=== PATIENT | female | born 1995 | race American Indian/Alaskan Native ===

== ENCOUNTER 2021-08-15 13:25 | Emergency (ER) | payer SELFPAY ==
--- NOTE | 2021-08-15 14:22 | Emergency Department Report ---
ED General Adult HPI - General Chief complaint: Syncope Stated complaint: SYNCOPE PUI?: No Time Seen by Provider: 08/15/21 13:45 Source: patient, EMS ( EMS documentation not available at time of chart dictation ), RN notes reviewed Mode of arrival: Stretcher Limitations: No Limitations - History of Present Illness Initial comments: The patient was evaluated in the emergency department for symptoms described in the history of present illness. He/she was evaluated in the context of the global COVID-19 pandemic, which necessitated consideration that the patient might be at risk for infection with the virus that causes COVID-19. Institutional protocols and algorithms that pertain to the evaluation of patients at risk for COVID-19 are in a state of rapid change based on information released by regulatory bodies including the CDC and federal and state organizations. These policies and algorithms were followed during the patient's care in the emergency department. Please note that these policies, procedures and recommendations changed on a rapid basis. The patient is a 26-year-old female. She is not known to myself previously. She states that she is not . She is brought to the hospital by emergency medical services with a chief complaint of syncope. The patient denies travel, surgery, , im mobilization, DVT and pulmonary embolism risk factors. She also denies Covid symptomatology. Patient reports that she was in her usual state of health this morning and this afternoon, and she was donating plasma. She reports that while donating plasma, she began to feel lightheaded, and lost consciousness. Prior to this event, she denies headache, neck pain, chest pain and abdominal pain. She states that she feels like she is basically back to her baseline. This is not happened to her in the past. -: Sudden Consistency: now resolved Improves with: none Worsens with: none Associated Symptoms: denies other symptoms, syncope, other (Mild nausea, no vomiting) - Related Data Allergies Allergy/AdvReac Type Severity Reaction Status Date / Time No Known Allergies Allergy Verified 08/15/21 14:17 ED Review of Systems ROS: Stated complaint: SYNCOPE Other details as noted in HPI Constitutional: denies: fever Eyes: denies: eye discharge ENT: denies: epistaxis Respiratory: denies: cough Cardiovascular: syncope. denies: chest pain Gastrointestinal: nausea. denies: abdominal pain, vomiting, hematemesis, melena, hematochezia Genitourinary: denies: dysuria Neurological: denies: headache Psychiatric: anxiety Hematological/Lymphatic: denies: easy bleeding ED Physical Exam - General Limitations: No Limitations General appearance: alert, in no apparent distress - Head Head exam: Present: atraumatic, normocephalic - Eye Eye exam: Present: normal appearance, PERRL, EOMI. Absent: nystagmus Pupils: Present: other (Visual acuity intact to finger counting, color perception, reading at a close distance) - ENT ENT exam: Present: normal exam, normal orophraynx, mucous membranes moist, normal external ear exam - Neck Neck exam: Present: normal inspection, full ROM. Absent: tenderness, meningismus - Respiratory Respiratory exam: Present: normal lung sounds bilaterally. Absent: respiratory distress, wheezes, rales, rhonchi, stridor, decreased breath sounds - Cardiovascular Cardiovascular Exam: Present: regular rate, normal rhythm, normal heart sounds. Absent: bradycardia, tachycardia, irregular rhythm, systolic murmur, diastolic murmur, rubs, gallop - GI/Abdominal GI/Abdominal exam: Present: soft. Absent: distended, tenderness, guarding, rebound, rigid, pulsatile mass - Extremities Exam Extremities exam: Present: normal inspection, full ROM, other (2+ pulses noted in the bilateral upper and lower extremities. There is no palpable cord. negative Homans sign. Muscular compartments are soft. The pelvis is stable.). Absent: pedal edema, calf tenderness - Back Exam Back exam: Present: normal inspection, full ROM. Absent: tenderness, CVA tenderness (R), CVA tenderness (L), paraspinal tenderness, vertebral tenderness - Neurological Exam Neurological exam: Present: alert, oriented X3, normal gait, other (There is no facial droop. The tongue is midline. Extraocular movements are intact bilaterally. There is 5 out of 5 strength in bilateral upper and lower extremities. Sensation is intact to light touch bilateral upper and lower extremities. There is no past-pointing. There is no pronator drift.). Absent: motor sensory deficit - Psychiatric Psychiatric exam: Present: normal affect, normal mood - Skin Skin exam: Present: warm, dry, intact, normal color. Absent: rash ED Course Vital Signs 08/15/21 08/15/21 15:10 15:15 Pulse Rate 94 H Respiratory 21 Rate O2 Sat by Pulse 98 100 Oximetry - Reevaluation(s) Reevaluation #1: 08/15/21 14:21 Differential diagnosis, including but not limited to: Orthostasis, vagal event, dehydration, electrolyte derangement Assessment and plan: 26-year-old female, who is not currently tachycardic, tachypneic or hypoxic, who denies DVT and pulmonary embolism risk factors, who is low risk by Wells criteria for pulmonary embolism, PERC negative, GCS 15, NIH score of 0, walking with a steady gait, who presents with an episode of painless loss of consciousness in the context of donating blood/plasma, now resolved. On my initial evaluation, the patient is in no distress, on her cell phone, and has a nonfocal neurologic exam, walking with a steady gait with no cerebellar signs. EKG unremarkable. Place patient on engine monitor, administer IV fluids and antiemetics. Obtain appropriate laboratory studies, reassess. I discussed this plan of care with the patient. She articulated understanding. 08/15/21 15:43 laboratory studies are unremarkable. Blood pressure still hypotensive. Additional IV fluids ordered. Patient resting comfortably in stretcher, in no acute distress. He'll be transferred to the oncoming ER physician, to reassess after completion of IV fluid resuscitation. We anticipate discharge presuming normalization of vital signs. ED Medical Decision Making - Lab Data Result diagrams: 08/15/21 14:12 08/15/21 14:12 Vital Signs 08/15/21 08/15/21 15:10 15:15 Pulse Rate 94 H Respiratory 21 Rate O2 Sat by Pulse 98 100 Oximetry Lab Results 08/15/21 08/15/21 08/15/21 Range/Units 14:12 14:12 14:12 WBC 10.3 (4.5-11.0) K/mm3 RBC 4.06 (3.65-5.03) M/mm3 Hgb 12.5 (10.1-14.3) gm/dl Hct 36.8 (30.3-42.9) % MCV 91 (79-97) fl MCH 31 (28-32) pg MCHC 34 (30-34) % RDW 14.5 (13.2-15.2) % Plt Count 372 (140-440) K/mm3 PT 14.6 (12.2-14.9) Sec. INR 1.09 (0.87-1.13) Sodium 138 (137-145) mmol/L Potassium 3.5 L (3.6-5.0) mmol/L Chloride 102.9 (98-107) mmol/L Carbon Dioxide 19 L (22-30) mmol/L Anion Gap 20 mmol/L BUN 8 (7-17) mg/dL Creatinine 0.7 (0.6-1.2) mg/dL Estimated GFR > 60 ml/min BUN/Creatinine Ratio 11 % Glucose 137 H (65-100) mg/dL Calcium 9.0 (8.4-10.2) mg/dL Magnesium 1.60 L (1.7-2.3) mg/dL Total Creatine Kinase 68 (30-135) units/L Troponin T < 0.010 (0.00-0.029) ng/mL TSH (0.270-4.200) mlU/mL HCG, Quant (0-4) mIU/mL 08/15/21 08/15/21 Range/Units 14:12 14:12 WBC (4.5-11.0) K/mm3 RBC (3.65-5.03) M/mm3 Hgb (10.1-14.3) gm/dl Hct (30.3-42.9) % MCV (79-97) fl MCH (28-32) pg MCHC (30-34) % RDW (13.2-15.2) % Plt Count (140-440) K/mm3 PT (12.2-14.9) Sec. INR (0.87-1.13) Sodium (137-145) mmol/L Potassium (3.6-5.0) mmol/L Chloride (98-107) mmol/L Carbon Dioxide (22-30) mmol/L Anion Gap mmol/L BUN (7-17) mg/dL Creatinine (0.6-1.2) mg/dL Estimated GFR ml/min BUN/Creatinine Ratio % Glucose (65-100) mg/dL Calcium (8.4-10.2) mg/dL Magnesium (1.7-2.3) mg/dL Total Creatine Kinase (30-135) units/L Troponin T (0.00-0.029) ng/mL TSH 0.285 (0.270-4.200) mlU/mL HCG, Quant 0.500 (0-4) mIU/mL - EKG Data -: EKG Interpreted by Pr EKG shows normal: sinus rhythm Rate: normal - EKG Data When compared to previous EKG there are: previous EKG unavailable 08/15/21 14:19 The EKG is interpreted at 14: 07 Sinus rhythm, 87 bpm. Normal axis, normal P wave axis, QTC, [place] interval within normal limits. This EKG is not a STEMI. Critical care attestation.: If time is entered above; I have spent that time in minutes in the direct care of this critically ill patient, excluding procedure time. ED Disposition Clinical Impression: History of syncope Is pt being admited?: No Does the pt Need Aspirin: No Condition: Good Instructions: Syncope Additional Instructions: Recommend that patient drink 4 to 6 cups of water per day indefinitely. Get 6 to 8 hours of good quality uninterrupted sleep each day, and avoid consumption of tobacco, alcohol, and smoke products. Recommend the patient not drive or operate motor vehicles for the next 6 months, or until cleared to do so by a primary care doctor or deckhand fishing vessel. Recommend that patient follow-up with a primary care doctor or deckhand fishing vessel within the next 5 days for repeat checkup and evaluation. Recommend that patient abstain from donating blood or plasma in the future, or until cleared to do so by primary care doctor or deckhand fishing vessel. Please return to the emergency room right away with new pain, worsened pain, migration of pain, projectile vomiting, change in mental status, confusion, inability to tolerate liquid feeds, new, worsened or different symptoms not present needs emergency room evaluation, recurrent loss of consciousness. Dr. Viera is a local deckhand fishing vessel. [facility] cardiology practices a local cardiology clinic. [facility] is a local primary care practice. Dr. Aron Fiore is a local primary care doctor. Referrals: ADONIS FIORE MD [Staff Physician] - 3-5 Days EMILEE VIERA MD [Staff Physician] - 3-5 Days [facility] [Provider Group] - 3-5 Days [facility] [Provider Group] - 3-5 Days
[2021-08-15 14:46] LABS: Hematocrit 36.8 % (30.3-42.9); Hemoglobin 12.5 gm/dl (10.1-14.3); Mean Corpuscular HGB Conc 34 % (30-34); Mean Corpuscular Volume 91 fl (79-97); Platelet Count 372 K/mm3 (140-440); Red Blood Count 4.06 M/mm3 (3.65-5.03); Red Cell Distribution Width 14.5 % (13.2-15.2)
[2021-08-15 14:56] LABS: INR 1.09 (0.87-1.13)
[2021-08-15 14:59] LABS: Blood Urea Nitrogen 8 mg/dL (7-17); Hemolysis Index 5
[2021-08-15] MEDS ORDERED: ONDANSETRON 4 MG/2 ML INJ IV ONE (15:00)
[2021-08-15] MEDS ORDERED: LACTATED RINGERS 1,000 ML IV ONE (15:00)
[2021-08-15 15:04] LABS: BUN/Creatinine Ratio 11
[2021-08-15] MEDS ORDERED: LACTATED RINGERS 2,000 ML IV ONE (15:41)
[2021-08-15 16:59] VITALS: BP 109/43
--- NOTE | 2021-08-16 11:48 | Electrocardiograph Report ---
[facility] Test Date: 2021-08-15 Test Time: 14:07:39 Pat Name: CHERRY TODD Department: Room: Gender: F Factorer: ROSELIA : 1995 Requested By: KASIE ANNE Order Number: [id number] Reading MD: Aurelio Kamara Measurements Intervals [place] Rate: 87 P: 61 W[place]: 107 QRS: 78 QRSD: 77 T: 55 QT: 353 QTc: 424 Interpretive Statements Sinus rhythm No previous ECG available for comparison Electronically Signed On 08-16-2021 11:48:01 EDT by Aurelio Kamara
== END 2021-08-15 16:50 | disposition left against medical advice (07) ==
LOC: ED 13:25
DX: R55 Syncope and collapse (principal); R94.6 Abnormal results of thyroid function studies
CPT/HCPCS: 36415; 80048; 82550; 83735; 84443; 84484; 84702; 85027; 85610; 93005; 96361; 96374; 99284; J2405; J7120